=== PATIENT | male | born 2000 | race Caucasian/White ===

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

== ENCOUNTER 2023-10-05 14:47 | Emergency (ER) | payer OTHER ==
[2023-10-05 14:54] VITALS: RESP 20; TEMP 98
[2023-10-05] MEDS ORDERED: ALPRAZolam 0.25 MG TABLET ONE (15:48)
[2023-10-05] MEDS: ALPRAZolam 0.25 MG TABLET PO ONE (15:58)
[2023-10-05 16:13] VITALS: BP 139/61; PULSE 98
[2023-10-05 16:33] LABS: BASO % 0.6 % (0-2.0); EOS % 0.8 % (0-4.5); HEMATOCRIT 45.5 % (35.4-49); HEMOGLOBIN 15.5 GM/dL (11.7-16.9); LYMPH % 21.6 % (8-40); MCH 28.1 pg (25.7-33.7); MEAN CELL VOLUME 82.4 fl (80-96); MEAN PLT VOLUME 8.3 fl (7.5-11.1); MONO % 7.8 % (3.8-10.2); NEUT % 69.2 % (42.8-82.8); PLATELET COUNT 224 10^3/uL (134-434); RBC 5.52 M/mm3 (4.00-5.60); RDW 13.5 % (11.9-15.9)
[2023-10-05 16:35] LABS: POTASSIUM 3.7 mmol/L (3.5-5.1)
[2023-10-05 16:36] LABS: CALCIUM 9.6 mg/dL (8.5-10.1)
[2023-10-05 16:37] LABS: BLOOD UREA NITROGEN 12.8 mg/dL (7-18)
[2023-10-05 16:41] LABS: CREATININE 0.8 mg/dL (0.55-1.3)
== END 2023-10-05 17:22 | disposition home or self-care (01) ==
LOC: JER 14:47
DX: R42 Dizziness and giddiness (principal); R00.2 Palpitations; F41.9 Anxiety disorder, unspecified
CPT/HCPCS: 36415; 80048; 82962; 84439; 84443; 85025; 93005; 93010; 99284-25